=== PATIENT | female | born 1960 | race Caucasian/White ===

== ENCOUNTER 2016-12-05 17:27 | Emergency (ER) | payer BC, OTHER ==
--- NOTE | 2016-12-05 18:40 | DIAGNOSTIC IMAGING REPORT ---
PROCEDURE: XR CERVICAL SPINE 2 OR 3 VIEW INDICATION: NECK TRAUMA/INJURY TECHNIQUE: Three views. COMPARISON: None. FINDINGS: There are moderate to marked degenerative changes of the cervical spine. Osseous structures and disc spaces are normal. No evidence of an acute process or fracture. IMPRESSION: 1. Moderate to marked degenerative changes. 2. Otherwise negative cervical spine.
--- NOTE | 2016-12-05 18:41 | DIAGNOSTIC IMAGING REPORT ---
PROCEDURE: XR THORACIC SPINE 3 VIEWS INDICATION: TRAUMA/INJURY TECHNIQUE: Three views. COMPARISON: None. FINDINGS: There is a mild levoscoliosis and degenerative changes of the mid thoracic spine. Osseous structures and disc spaces are otherwise normal. No evidence of an acute process or fracture. IMPRESSION: 1. Mild levoscoliosis and degenerative changes of the mid thoracic spine.
--- NOTE | 2016-12-05 18:45 | DIAGNOSTIC IMAGING REPORT ---
PROCEDURE: CT HEAD WITHOUT CONTRAST INDICATION: TRAUMA/INJURY TECHNIQUE: Noncontrast axial images with sagittal and coronal reformations. COMPARISON: Compared to a head CT on 02/04/2015. FINDINGS: Brain and ventricles are normal. No evidence of an acute process or hemorrhage. Postoperative changes of the sinuses (nasal antral windows). Sinuses and mastoids are otherwise normal. IMPRESSION: 1. Negative head CT. 2. Findings discussed with CARMEN Walters at [address] scans at this facility use dose modulation, iterative reconstruction, and/or weight-based dosing when appropriate to reduce radiation dose to as low as reasonably achievable.
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
--- NOTE | 2016-12-05 18:48 | ED ORDER SUMMARY ---
..... Patient: KELY REDMAN OrderSheet [facility] VisitID: [id number] [address] [place] [address] 56y, F Registration Date/Time: 12/05/2016 ORDER SHEET Weight: 86.1 kg (stated) Allergies: Anaprox, ASA, Augmentin, Azithromycin, Benadryl, Bextra, Ceclor, Compazine, Danazol, Demerol, Ditropan, Doxycycline, Duract, Erythromycin, Estrogens, Imitrex, Keflex, Meclomen, Methadone, Morphine Sulfate, Motrin, Nubain, Promethazine HCl, Pyridium, Reglan, Relpax, Seisone, Sulfa Drugs, Too many to list see pt chart and allergy list, Ultram, Vioxx, Zelnorm, Lovenox, Heparin, Mupirocin GENERAL ORDERS: Cervical Spine 2 or 3V Urgent (17:38 12/05/2016 EKoroleva P.A.-C) (Ack 17:39 Yordan) (18:29 [place]) Thoracic Spine 3V Urgent (17:38 12/05/2016 EKoroleva P.A.-C) (Ack 17:39 Yordan) (18:29 [place]) CT Head wo Cont Urgent (17:38 12/05/2016 EKoroleva P.A.-C) (Ack 17:39 Yordan) (18:29 [place]) PT with INR Urgent (17:38 12/05/2016 EKoroleva P.A.-C) (Ack 17:39 LAURENoeraleksandra) (17:56 PWeiler ER Tech1) PTT Urgent (17:38 12/05/2016 EKoroleva P.A.-C) (Ack 17:39 LAURENoeraleksandra) (17:56 PWeiler ER Tech1) MEDICATION ORDERS: IV FLUIDS: ORDER SHEET NOTES: [Electronically signed by Roxy Portillo R.N. (19:06 12/05/2016)] [Electronically signed by Kera Watkins.A.-C (19:07 12/05/2016)] [Electronically locked/signed by Roxy Portillo R.N. (19:06 12/05/2016)]
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
--- NOTE | 2016-12-05 18:48 | ED ORDER SUMMARY ---
..... Patient: KELY REDMAN OrderSheet [facility] VisitID: [id number] [address] [place] [address] 56y, F Registration Date/Time: 12/05/2016 ORDER SHEET Weight: 86.1 kg (stated) Allergies: Anaprox, ASA, Augmentin, Azithromycin, Benadryl, Bextra, Ceclor, Compazine, Danazol, Demerol, Ditropan, Doxycycline, Duract, Erythromycin, Estrogens, Imitrex, Keflex, Meclomen, Methadone, Morphine Sulfate, Motrin, Nubain, Promethazine HCl, Pyridium, Reglan, Relpax, Seisone, Sulfa Drugs, Too many to list see pt chart and allergy list, Ultram, Vioxx, Zelnorm, Lovenox, Heparin, Mupirocin GENERAL ORDERS: Cervical Spine 2 or 3V Urgent (17:38 12/05/2016 EKoroleva P.A.-C) (Ack 17:39 Yordan) (18:29 Ailey) Thoracic Spine 3V Urgent (17:38 12/05/2016 EKoroleva P.A.-C) (Ack 17:39 Yordan) (18:29 Ailey) CT Head wo Cont Urgent (17:38 12/05/2016 EKoroleva P.A.-C) (Ack 17:39 Yordan) (18:29 Ailey) PT with INR Urgent (17:38 12/05/2016 EKoroleva P.A.-C) (Ack 17:39 LAURENoeraleksandra) (17:56 PWeiler ER Tech1) PTT Urgent (17:38 12/05/2016 EKoroleva P.A.-C) (Ack 17:39 LAURENoeraleksandra) (17:56 PWeiler ER Tech1) MEDICATION ORDERS: IV FLUIDS: ORDER SHEET NOTES: [Electronically signed by Roxy Portillo R.N. (19:06 12/05/2016)] [Electronically signed by Kera Watkins.A.-C (19:07 12/05/2016)] [Electronically locked/signed by Roxy Portillo R.N. (19:06 12/05/2016)]
--- NOTE | 2016-12-05 19:08 | ED MAR SUMMARY ---
..... Medication Administration Record [facility] [address] [place] [address] Patient: KELY REDMAN Visit ID: [id number] 56y, F Weight: 86.1 kg Height/Length: 67 in BMI: 29.8 ALLERGIES: Mupirocin, Heparin, Lovenox, Anaprox, ASA, Augmentin, Azithromycin, Benadryl, Bextra, Ceclor, Compazine, Danazol, Demerol, Ditropan, Doxycycline, Duract, Erythromycin, Estrogens, Imitrex, Keflex, Meclomen, Methadone, Morphine Sulfate, Motrin, Nubain, Promethazine HCl, Pyridium, Reglan, Relpax, Seisone, Sulfa Drugs, Too many to list see pt chart and allergy list, Ultram, Vioxx, Zelnorm
--- NOTE | 2016-12-05 19:08 | ED DISCHARGE INSTRUCTIONS ---
Patient: KELY REDMAN General Instructions [facility] VisitID: [id number] [place] [address] 56y, F Registration Date/Time: 12/05/2016 Minor closed head injury. Acute cervical strain. INSTRUCTIONS Apply ice. (INR 1.7 increase your warfarin dose by double next 2 days, then check your INR). Follow-up: Follow up with your doctor in three days as needed. ADDITIONAL INFORMATION Neck Sprain Or Strain A sudden force that causes turning or bending of the neck (such as in a car accident) can stretch or tear muscles (strain) and ligaments (sprain) and cause neck pain. Sometimes neck pain occurs after a simple awkward movement. In either case, muscle spasm is commonly present and contributes to the pain. Unless you had a forceful physical injury (for example, a car accident or fall), X-rays are usually not ordered for the initial evaluation of neck pain. If pain continues and dose not respond to medical treatment, X-rays and other tests may be performed at a later time. Home care The following guidelines will help you care for your injury at home: You may feel more soreness and spasm the first few days after the injury. Reduce your activity level until symptoms begin to improve. When lying down, use a comfortable pillow that supports the head and keeps the spine in a neutral position. The position of the head should not be tilted forward or backward. Use ice packs (ice in a plastic bag, wrapped in a towel) to treat acute pain. Apply for 20 minutes every 24 hours during the first two days. Then, begin local heat (hot shower, hot bath or heating pad) andmassageto reduce muscle spasm. Some patients feel best alternating hot and cold treatments, or just staying with one method only. Do what feels the best to you and gives the most relief. You may use acetaminophen or ibuprofen to control pain, unless another pain medicine was prescribed.If you have chronic liver or kidney disease or ever had a stomach ulcer or GI bleeding, talk with your doctor before using these medicines. Follow-up care Follow up with your physician or this facility if your symptoms do not show signs of improvement. Physical therapy may be needed. If you had X-rays today, they didnt show any broken bones, breaks, or fractures. Sometimes fractures dont show up on the first X-ray. Bruises and sprains can sometimes hurt as much as a fracture. These injuries can take time to heal completely. If your symptoms dont improve or they get worse, talk with your doctor. You may need a repeat X-ray. When to seek medical care Get prompt medical attention if any of the following occur: Pain becomes worse or spreads into your arms Weakness or numbness in one or both arms Neck Pain [No Trauma] There are several possible causes of neck pain without injury: You can get a minor ligament sprain or muscle strain from a sudden minor neck movement. Sleeping with your neck in an awkward position can also cause this. Some persons respond to emotional stress by tensing the muscles of their neck, shoulders and upper back. Chronic spasm in these muscles can cause neck pain and sometimes headaches. Gradualwear and tearof the joints in the spine can cause degenerative arthritis.This can be a source of occasional or chronic neck pain. With aging or repeated small injuries to the neck, the spinal disks (the cushions between each spinal bone) may bulge and put pressure on a nearby spinal nerve. This causes tingling, pain or numbness spreading from the neck to the shoulder, arm or hand on one side. Acute neck pain usually gets better in one to two weeks. Neck pain related to disk disease, arthritis in the spinal joints or spinal stenosis (narrowing of the spinal canal) can become chronic and last for months or years. Unless you had a forceful physical injury (for example, a car accident or fall), X-rays are usually not ordered for the initial evaluation of neck pain. If pain continues and does not respond to medical treatment, x-rays and other tests may be performed at a later time. Home Care: Rest and relax the muscles. Use a comfortable pillow that supports the head and keeps the spine in a neutral position. The position of the head should not be tilted forward or backward. A rolled up towel may help for a custom fit. Some persons find relief with heat (hot shower, hot bath or heating pad) and massage, while others prefer cold packs (crushed or cubed ice in a plastic bag, wrapped in a towel) . Try both and use the method that feels best for 20 minutes several times a day. You may use acetaminophen (Tylenol) or ibuprofen (Motrin, Advil) to control pain, unless another medicine was prescribed. [ NOTE : If you have chronic liver or kidney disease or ever had a stomach ulcer or GI bleeding, talk with your doctor before using these medicines.] Follow Up with your physician or this facility if your symptoms do not show signs of improvement after one week. Physical therapy or further tests may be needed. [NOTE: A radiologist will review any X-rays or CT scans that were taken. We will notify you of any new findings that may affect your care.] Get Prompt Medical Attention if any of the following occur: Pain becomes worse or spreads into one or both arms Weakness or numbness in one or both arms Increasing headache Neck swelling, difficulty or painful swallowing Fever of 100.4F (38C) or higher, or as directed by your healthcare provider Head Injury, No Wake-Up (Adult) You have had a head injury. It does not appear serious at this time. Symptoms of a more serious problem (concussion, bruising, or bleeding in the brain) may appear later. Therefore, watch for the WARNING SIGNS listed below. Home Care: Your healthcare provider will tell you whether its okay to drive. If so, you can drive yourself home. For the next day or so, be careful when driving or using heavy machinery until you are sure you have no delayed symptoms. During the next 24 hours someone must stay with you to check for the signs below. It is not necessary to stay awake or be awakened during the night. If you have swelling of the face or scalp, apply an ice pack (ice cubes in a plastic bag, wrapped in a towel) for 20 minutes. Do this every 1-2 hours until the swelling starts to go down. Do not use aspirin or ibuprofen (Motrin, Advil) after a head injury.You may use acetaminophen (Tylenol)to control pain, unless another pain medicine was prescribed. [NOTE: If you have chronic liver or kidney disease or ever had a stomach ulcer or GI bleeding, talk with your doctor before using these medicines.] For the next 24 hours: Do not take alcohol, sedatives or medicines that make you sleepy. Avoid strenuous activities. No lifting or straining. If you have had any symptoms of a concussion today (nausea, vomiting, dizziness, confusion, headache, memory loss or if you were knocked out), do not return to sports or any activity that could result in another head injury until all symptoms are gone and you have been cleared by your doctor. A second head injury before fully recovering from the first one can lead to serious brain injury. Follow Up with your doctor if symptoms are not improving after 24 hours, or as directed. [NOTE: A radiologist will review any X-rays or CT scans that were taken. We will notify you of any new findings that may affect your care.] Get Prompt Medical Attention if any of the followingWARNING SIGNS occur: Repeated vomiting Severe or worsening headache or dizziness Unusual drowsiness, or unable to awaken as usual Confusion or change in behavior or speech, memory loss, blurred vision Convulsion (seizure) Increasing scalp or face swelling Redness, warmth or pus from the swollen area Fluid drainage or bleeding from the nose or ears You have been given the following additional information: Neck Sprain/Strain Neck Pain, No Trauma HEAD INJURY, No Wake-Up (Adult) (Electronically signed by Kera Watkins P.A.-C 12/05/2016 19:07)
--- NOTE | 2016-12-05 19:08 | ED MED RECONCILIATION SUMMARY ---
Patient: KELY REDMNA Medication Reconciliation Report [facility] VisitID: [id number] [address] [place] [address] 56y, F Registration Date/Time: 12/05/2016 Weight: 86.1 kg Height/Length: 67 in. BMI: 29.8 ALLERGIES: Anaprox, ASA, Augmentin, Azithromycin, Benadryl, Bextra, Ceclor, Compazine, Danazol, Demerol, Ditropan, Doxycycline, Duract, Erythromycin, Estrogens, Heparin, Imitrex, Keflex, Lovenox, Meclomen, Methadone, Morphine Sulfate, Motrin, Mupirocin, Nubain, Promethazine HCl, Pyridium, Reglan, Relpax, Seisone, Sulfa Drugs, Too many to list see pt chart and allergy list, Ultram, Vioxx, Zelnorm The patient's Home Medications are listed below: THE FOLLOWING MEDICATIONS NEED TO BE RECONCILED: Bentyl Oral 10 mg, 4x a day Coumadin Oral 2.5 mg, 2x/day, 2x/week Diazepam cream Dilaudid Oral (4 mg) Gabapentin Oral OxyCODONE HCl Oral Qvar Inhalation Rhodiola rosea Oral (300 mg) 2 capsules Ventolin HFA Inhalation Vitamin D Oral 5000u Zofran Oral 4 mg, 3x a day The source(s) of the original Home Medication information: Not obtained. The following Medications were given to the patient in the Emergency Department: None. The following Medications were prescribed to the patient: None.
--- NOTE | 2016-12-05 19:08 | ED MAR SUMMARY ---
..... Medication Administration Record [facility] [address] [place] [address] Patient: KELY REDMAN Visit ID: [id number] 56y, F Weight: 86.1 kg Height/Length: 67 in BMI: 29.8 ALLERGIES: Mupirocin, Heparin, Lovenox, Anaprox, ASA, Augmentin, Azithromycin, Benadryl, Bextra, Ceclor, Compazine, Danazol, Demerol, Ditropan, Doxycycline, Duract, Erythromycin, Estrogens, Imitrex, Keflex, Meclomen, Methadone, Morphine Sulfate, Motrin, Nubain, Promethazine HCl, Pyridium, Reglan, Relpax, Seisone, Sulfa Drugs, Too many to list see pt chart and allergy list, Ultram, Vioxx, Zelnorm
--- NOTE | 2016-12-05 19:08 | ED MED RECONCILIATION SUMMARY ---
Patient: KELY REDMAN Medication Reconciliation Report [facility] VisitID: [id number] [address] [place] [address] 56y, F Registration Date/Time: 12/05/2016 Weight: 86.1 kg Height/Length: 67 in. BMI: 29.8 ALLERGIES: Anaprox, ASA, Augmentin, Azithromycin, Benadryl, Bextra, Ceclor, Compazine, Danazol, Demerol, Ditropan, Doxycycline, Duract, Erythromycin, Estrogens, Heparin, Imitrex, Keflex, Lovenox, Meclomen, Methadone, Morphine Sulfate, Motrin, Mupirocin, Nubain, Promethazine HCl, Pyridium, Reglan, Relpax, Seisone, Sulfa Drugs, Too many to list see pt chart and allergy list, Ultram, Vioxx, Zelnorm The patient's Home Medications are listed below: THE FOLLOWING MEDICATIONS NEED TO BE RECONCILED: Bentyl Oral 10 mg, 4x a day Coumadin Oral 2.5 mg, 2x/day, 2x/week Diazepam cream Dilaudid Oral (4 mg) Gabapentin Oral OxyCODONE HCl Oral Qvar Inhalation Rhodiola rosea Oral (300 mg) 2 capsules Ventolin HFA Inhalation Vitamin D Oral 5000u Zofran Oral 4 mg, 3x a day The source(s) of the original Home Medication information: Not obtained. The following Medications were given to the patient in the Emergency Department: None. The following Medications were prescribed to the patient: None.
== END 2016-12-05 18:54 | disposition home or self-care (01) ==
LOC: ED SRH 17:27
DX: S09.90XA Unspecified injury of head, initial encounter (principal); S16.1XXA Strain of muscle, fascia and tendon at neck level, initial encounter; W19.XXXA Unspecified fall, initial encounter; Y93.89 Activity, other specified; Y92.009 Unspecified place in unspecified non-institutional (private) residence as the place of occurrence of the external cause; Y99.9 Unspecified external cause status; J45.909 Unspecified asthma, uncomplicated; Z88.5 Allergy status to narcotic agent; Z79.899 Other long term (current) drug therapy; Z88.8 Allergy status to other drugs, medicaments and biological substances
CPT/HCPCS: 94001; 94060